=== PATIENT | female | born 1995 | race Caucasian/White ===

== ENCOUNTER 2016-10-07 14:01 | Emergency (ER) | payer BC, MEDICAID ==
[~2016-10-07] VITALS: Ht 167.6 cm; Wt 107.9 kg
[~2016-10-07 14:01] MED LIST: AC325T PO; ARIP30TA PO; BUSP10TA95 PO; CHLORHEXIDINE 0.12%; DOXY100C2 PO; FLUO10CA19 PO; HYDR-3811 PO; IBP200T PO; NEOM28OI TOP; PRAZ1CAP2 PO; TRAZ100T92 PO; [UNRECOGNIZED DRUG - CODE] PO
--- OUTSIDE RECORDS SUMMARY | 2016-10-07 14:05 | XMS REPORT | Continuity of Care Document ---
Author Author [facility] Organization [facility] Address Unknown Phone Unavailable Care Team Providers Care Director Counseling Bureau Name Role Phone Vivienne Quijano PCP [phone] Insurance Providers Payer Name Policy Number Subscriber Name Relationship [facility] [id number] Kenn Desai 18 Father [facility] [id number] Blanca Desai 17 Self / Same As Patient Chief Complaint and Reason for Visit Chief Complaint Psychological Complaint Reason for Visit Suicidal ideation Problems Medical Problems Problem Onset Date Status Suicidal ideation Unknown Active Medications Medication Dose Route Sig Days/Qty Instructions Order Date Discontinued Date Status Aripiprazole 30 Mg ORAL DAILY @ 0800 HR 06/22/14 Active Aripiprazole 0.5 Tab ORAL DAILY @ 1999 HRS 06/22/14 Active Buspirone Hcl 10 Mg ORAL TWICE A DAY 06/22/14 Active Doxycycline Hyclate 100 Mg ORAL TWICE A DAY 06/22/14 Active Fluoxetine Hcl 10 Mg ORAL DAILY @ 1999 HRS 06/22/14 Active Prazosin Hcl 1 Mg ORAL DAILY AT 1999 HRS 06/22/14 Active Trazodone Hcl 100 Mg ORAL DAILY AT 1999 HRS 06/22/14 Active Neomy Sulf/Bacitrac Zn/Poly Unknown Dose TOPICAL NEEDED PRN MINOR CUTS/ ABRASIONS 06/22/14 Active Acetaminophen 2 Tab ORAL Q6HR NEEDED PRN PAIN OR TEMP 06/22/14 Active Ibuprofen 2 Tab ORAL Q6HR NEEDED. PRN PAIN OR FEVER 06/22/14 Active Social History No social history. Hospital Discharge Instructions No hospital discharge instructions. Plan of Care Discharge Date 06/22/14 7:19pm Disposition 01 HOME OR SELF-CARE Condition at Discharge Stable Instructions/Education Provided Suicide Prevention Through Young Adulthood (ED ) Prescriptions See Medications Section Referrals Vivienne Quijano Additional Instructions/Education Follow safety plan as established by Carlos Alberto Martinez Return if thoughts of hurting yourself return Some of your test results may not be complete prior to your leaving the Emergency Department. The Emergency Department is not authorized to give test results over the phone. Please contact the doctor's office listed in this packet of information for your final results. Follow up with your primary care physician or return to the Emergency Department for worsening or worrisome symptoms. * Emergency Department phone number: [phone], x [phone]* MEDICAL RECORD If you need copies of your X-rays, call [phone]. If you need copies of your medical record, including lab results, a signed authorization for release of records will be required. A telephone call for release of Health Information is not allowed. BILLING Billing can sometimes be confusing and frustrating. To help avoid confusion in the future, please take a moment to acquaint yourself with the billing parties for services. [facility] Emergency Room Services [facility] Physician Services [facility] [place] Patients will receive bills for services from the appropriate provider. If you have any questions about your [facility] bill, our staff will be happy to assist you. Please call [phone], and ask for the billing department. THANK YOU for choosing [facility] as your emergency care provider! Functional Status No functional status results. Allergies, Adverse Reactions, Alerts Allergen Type Severity Reaction Status Last Updated No Known Drug Allergies Active 06/22/14 Immunizations No immunization records. Vital Signs Acute Vital Signs Vital Response Date/Time Temperature (Fahrenheit) 98.6 Pulse 109 bpm Respirations 20 Height 5 ft 5 in Weight 192 lb Body Mass Index 32.0 kg/m^2 Results Test Source Date Result Interp. Ref. Range Comments Urine Propoxyphene Screen June 22, 2014 4:30pm Negative NEGATIVE Results of this screen are qualitative and are presumptiveresults. A more specific method (i.e. GC/MS) must be used if confirmation of results is indicated. Urine Oxycodone Screen June 22, 2014 4:30pm Negative NEGATIVE Urine collection method Clean Catch Urine Methadone Screen June 22, 2014 4:30pm Negative Negative Urine collection method Clean Catch Ur Tricyclic Antidepressants Screen June 22, 2014 4:30pm Negative Negative Urine collection method Clean Catch Urine Barbiturates Screen June 22, 2014 4:30pm Negative Negative Urine collection method Clean Catch Urine Opiates Screen June 22, 2014 4:30pm Negative Negative Urine collection method Clean Catch Urine Cannabinoids Screen June 22, 2014 4:30pm Negative Negative Urine collection method Clean Catch Urine Methamphetamines Screen June 22, 2014 4:30pm Negative NEGATIVE Urine collection method Clean Catch Urine Amphetamines Screen June 22, 2014 4:30pm Negative Negative Urine collection method Clean Catch Urine Cocaine Screen June 22, 2014 4:30pm Negative Negative Urine collection method Clean Catch Urine Benzodiazepines Screen June 22, 2014 4:30pm Negative Negative Urine collection method Clean Catch Urine Phencyclidine Screen June 22, 2014 4:30pm Negative Negative Phencyclidine testing by this method can showcross-reactivity with several common medications such as venlafaxine, dextromethorphan, and diphenhydramine. Submission of any positive sample for confirmatory testing is recommended. Urine Collection Type June 22, 2014 4:30pm Clean catch Urine collection method Clean Catch Urine Leukocyte Esterase June 22, 2014 4:30pm Negative Negative Urine collection method Clean Catch Urine Urobilinogen June 22, 2014 4:30pm 1.0 mg/dL 0.2-1.0 Urine collection method Clean Catch Urine Bilirubin June 22, 2014 4:30pm Negative Negative Urine collection method Clean Catch Urine Nitrite June 22, 2014 4:30pm Negative Negative Urine collection method Clean Catch Urine Ketones June 22, 2014 4:30pm Negative Negative Urine collection method Clean Catch Urine Blood June 22, 2014 4:30pm Negative Negative Urine collection method Clean Catch Urine Glucose (UA) June 22, 2014 4:30pm Negative Negative Urine collection method Clean Catch Urine Protein June 22, 2014 4:30pm Negative Negative Urine collection method Clean Catch Urine Specific [place] June 22, 2014 4:30pm 1.020 1.005-1.030 Urine collection method Clean Catch Urine pH June 22, 2014 4:30pm 7.5 5.0 - 8.0 Urine collection method Clean Catch Urine Clarity June 22, 2014 4:30pm Cloudy Urine collection method Clean Catch Urine Color June 22, 2014 4:30pm Yellow Urine collection method Clean Catch Serum Alcohol June 22, 2014 4:00pm < 10.0 mg/dL L 10-80 Acetaminophen Level June 22, 2014 4:00pm < 10.0 mcg/mL L 10.0-30.0 Salicylates Level June 22, 2014 4:00pm < 1.0 MG/DL L 2.0-20.0 Albumin/Globulin Ratio June 22, 2014 4:00pm 1.433 N 1.1-1.8 Albumin June 22, 2014 4:00pm 4.3 g/dL N 3.4-5.0 Total Protein June 22, 2014 4:00pm 7.3 g/dL N 6.4-8.5 Alanine Aminotransferase (ALT/SGPT) June 22, 2014 4:00pm 37 U/L N 30- 65 Aspartate Amino Transf (AST/SGOT) June 22, 2014 4:00pm 25 U/L N 15- 37 Alkaline Phosphatase June 22, 2014 4:00pm 79 U/L N 38-126 Total Bilirubin June 22, 2014 4:00pm 0.1 mg/dL N 0.1-1.0 Calcium/Ionized Calcium Ratio June 22, 2014 4:00pm 4.1 mg/dL N 3.8- 4.6 Calcium Level June 22, 2014 4:00pm 9.4 mg/dL N 8.8-10.8 Calculated Osmolality June 22, 2014 4:00pm 283 mosm/L N 280-300 Glucose Level June 22, 2014 4:00pm 116 mg/dL H 70-110 Estimated GFR (Non- June 22, 2014 4:00pm 90.2 Estimat Glomerular Filtration Rate June 22, 2014 4:00pm 109.1 BUN/Creatinine Ratio June 22, 2014 4:00pm 12 N 10-20 Creatinine June 22, 2014 4:00pm 0.81 mg/dL N 0.6-1.2 Blood Urea Nitrogen June 22, 2014 4:00pm 10 mg/dL N 7-18 Anion Gap June 22, 2014 4:00pm 16.6 MEQ/L H 3-15 Carbon Dioxide Level June 22, 2014 4:00pm 28 mmol/L N 22-29 Chloride Level June 22, 2014 4:00pm 107 mmol/L N 98-108 Potassium Level June 22, 2014 4:00pm 4.3 mmol/L N 3.5-5.1 Sodium Level June 22, 2014 4:00pm 147 mmol/L N 135-150 Basophils # (Auto) June 22, 2014 4:00pm 0.0 10^3uL Eosinophils # (Auto) June 22, 2014 4:00pm 0.1 10^3uL Monocytes # (Auto) June 22, 2014 4:00pm 0.5 X10^3 Lymphocytes # (Auto) June 22, 2014 4:00pm 1.8 X10^3 Neutrophils # (Auto) June 22, 2014 4:00pm 4.5 X10^3 Basophils (%) (Auto) June 22, 2014 4:00pm 0 % N 0-2 Eosinophils (%) (Auto) June 22, 2014 4:00pm 1 % N 0-4 Monocytes (%) (Auto) June 22, 2014 4:00pm 7 % N 3-11 Lymphocytes (%) (Auto) June 22, 2014 4:00pm 26 % N 20-46 Neutrophils (%) (Auto) June 22, 2014 4:00pm 65 % N 51-67 Mean Platelet Volume June 22, 2014 4:00pm 10.5 FL H 6.0-9.5 Platelet Count June 22, 2014 4:00pm 300 10^3uL N 150-450 Red Cell Distribution Width June 22, 2014 4:00pm 13.3 % N 11.8-15.6 Mean Corpuscular Hemoglobin Concent June 22, 2014 4:00pm 33.5 g/dL N 31.0-37.0 Mean Corpuscular Hemoglobin June 22, 2014 4:00pm 27.2 PG N 26.0-34.0 Mean Corpuscular Volume June 22, 2014 4:00pm 81 FL N 80-100 Hematocrit June 22, 2014 4:00pm 37.00 % N 35.00-45.00 Hemoglobin June 22, 2014 4:00pm 12.4 g/dL N 12.0-15.5 Red Blood Count June 22, 2014 4:00pm 4.56 10^6uL N 4.00-5.00 White Blood Count June 22, 2014 4:00pm 6.84 10^3uL N 4.0-11.0 Procedures No known history of procedures. Encounters Encounter Location Date/Time Departed Emergency Room [facility] 06/22/14 3:24pm Recent Diagnosis
--- OUTSIDE RECORDS SUMMARY | 2016-10-07 14:11 | XMS REPORT | Continuity of Care Document ---
Author Author [facility] Organization [facility] Address Unknown Phone Unavailable Care Team Providers Care Credit Risk Analyst Name Role Phone Vviienne Quijano PCP [phone] Insurance Providers Payer Name Policy Number Subscriber Name Relationship [facility] [id number] Kenn Desai 18 Father [facility] [id number] Blanca Desai 17 Self / Same As [...] worrisome symptoms. * Emergency Department phone number: [phone], x [phone]* MEDICAL RECORD If you need copies of your X-rays, call [phone] x [phone]. If you need copies of [...] services. SERVICE BILLING [facility] Emergency Room Services [facility] Physician Services [facility] X-rays [place] [facility] Patients will receive bills for services from the appropriate provider. If you have any questions about your [facility] bill, our staff will be happy to assist you. Please call [phone], and ask for the billing department. THANK YOU for choosing [facility] as your emergency care provider! Functional Status [...] Urine collection method Clean Catch Urine Specific [place] June 22, 2014 4:30pm 1.020 1.005-1.030 Urine [...] Encounters Encounter Location Date/Time Departed Emergency Room [facility] 06/22/14 3:24pm Recent Diagnosis
[2016-10-07] MEDS ORDERED: IBUPROFEN 200 MG (MOTRIN) TAB PO ONE (14:40)
[2016-10-07] MEDS ORDERED: diphenhydrAMINE 50 MG (BENADRYL) CAPSULE PO ONE (14:40)
--- NOTE | 2016-10-07 14:48 | NUR ---
This nurse leaves message with [facility] to get information from yesterday's hospital visit.
[2016-10-07] MEDS ORDERED: HYDR-3775 PO (15:18)
[2016-10-07] MEDS ORDERED: FERR-74 PO (15:18)
[2016-10-07] MEDS ORDERED: FLUT16SP NSEACH (15:18)
[2016-10-07] MEDS ORDERED: NF-MEDROXA IM (15:18)
[2016-10-07] MEDS ORDERED: CHLO473M MT (15:18)
[2016-10-07] MEDS ORDERED: DIVA250T4 PO (15:18)
[2016-10-07] MEDS ORDERED: MENT1LOZ4 MM (15:18)
[2016-10-07 15:19] LABS: BASOPHILS % (AUTO) 0 % (0-2); EOSINOPHILS % (AUTO) 0 % (0-4); LYMPHOCYTES # (AUTO) 2.8 X10^3; MEAN CORPUSCULAR HEMOGLOBIN 27.3 PG (26.0-34.0); MEAN CORPUSCULAR HGB CONC 32.5 g/dL (31.0-37.0); MEAN CORPUSCULAR VOLUME 84 FL (80-100); MEAN PLATELET VOLUME 10.1 FL (6.0-9.5); MONOCYTES # (AUTO) 1.4 X10^3; MONOCYTES % (AUTO) 9 % (3-11); NEUTROPHILS # (AUTO) 10.1 X10^3; NEUTROPHILS % (AUTO) 71 % (51-67); PLATELET COUNT 276 10^3uL (150-450); WHITE BLOOD COUNT 14.32 10^3uL (4.0-11.0)
[2016-10-07 16:40] VITALS: BP 120/56
== END 2016-10-07 16:41 | disposition home or self-care (01) ==
LOC: ED 14:07
DX: M94.0 Chondrocostal junction syndrome [Tietze] (principal); L50.9 Urticaria, unspecified; L25.9 Unspecified contact dermatitis, unspecified cause
CPT/HCPCS: 36415; 84484; 85025; 93005; 93010; 99282; 99285